=== PATIENT | female | born 1975 | race African-American/Black ===

== ENCOUNTER 2021-11-15 10:57 | Emergency (ER) | payer BC, SELFPAY ==
--- NOTE | ~2021-11-15 | XR_ITS ---
EXAMINATION: XR CHEST CLINICAL INFORMATION: Left upper quadrant abdominal pain COMPARISON: None TECHNIQUE: 2 views of the chest were obtained. FINDINGS: No significant abnormality is noted involving the heart, lungs, mediastinum, bony thorax or soft tissues. XR/XR chest 2V IMPRESSION: Unremarkable chest examination.
--- NOTE | ~2021-11-15 | CT_ITS ---
EXAMINATION: CT HEAD WITHOUT CONTRAST CT ABDOMEN AND PELVIS WITH CONTRAST CLINICAL INFORMATION: Headaches, right-sided for a few days, with blurry vision. Abdominal pain. COMPARISON: None. TECHNIQUE: Multidetector CT imaging of the head was performed in two separate acquisitions without the use of intravenous contrast. Multiplanar reformats are reviewed. Multidetector volumetric CT imaging of the abdomen and pelvis was obtained after the administration of 85 mL of intravenous Omnipaque 350 without immediate adverse reactions. Multiplanar reformats and maximal intensity projection images are reviewed. This CT examination was performed using dose optimization techniques as appropriate, variously including the following: *Automated exposure control *Adjustment of mA and/or kV according to patient size (this includes techniques or standardized protocols for targeted exams where dose is matched to indication/reason for exam; i.e. extremities or head) *Use of iterative reconstruction technique DLP: 1502 mGy-cm. FINDINGS: HEAD There is no evidence of acute intracranial hemorrhage or territorial infarction. No abnormal mass effect or midline shift is seen. Cannon to white matter differentiation is well preserved. No extra-axial fluid collections are identified. The ventricles are normal in size. Mild patchy subcortical and periventricular white matter low-attenuation changes. The osseous structures and soft tissues are normal. Mucosal thickening within the right maxillary sinus. Remainder of the paranasal sinuses are clear. Mastoid air cells are underpneumatized on a developmental basis. ABDOMEN/PELVIS IMAGED THORAX: Lungs are clear. HEPATOBILIARY: Liver normal in size, contour and morphology. No suspicious lesions. No intra or extrahepatic biliary dilation. Gallbladder unremarkable. PANCREAS: Unremarkable. SPLEEN: Unremarkable. ADRENAL GLANDS: Unremarkable. KIDNEYS, URETERS AND BLADDER: Kidneys normal in size, axis and morphology demonstrating symmetric enhancement. No hydronephrosis or urinary calculi. Ureters normal in course and caliber. Bladder grossly unremarkable.. GASTROINTESTINAL TRACT: No bowel related abnormalities. PELVIC VISCERA: Uterus and adnexa unremarkable. LYMPH NODES: No lymphadenopathy. PERITONEUM/BODY WALL: Diastasis of the rectus abdominis.c no ascites. VASCULAR STRUCTURES: Unremarkable. OSSEOUS STRUCTURES: No acute or suspicious osseous abnormalities. CT/CT abdomen pelvis w con IMPRESSION: * No acute intracranial pathology. * Mild patchy subcortical and periventricular white matter low-attenuation changes are nonspecific but greater than expected for patient age if these are assumed to be on the basis of chronic white matter small vessel ischemic disease. Inter eduarda, chronic migraines, demyelinating diseases and vasculitides should also be considered. * No etiology for the patient's abdominal pain is identified. * No fractures.
[2021-11-15 11:02] VITALS: BP 127/70; PULSE 81; RESP 19; TEMP 36.1; O2SAT 99; BMI 17.6
--- NOTE | 2021-11-15 11:48 | ED.ABDPAIN ---
HPI - Abdominal Pain General Chief Complaint: Abdominal Pain Stated Complaint: stomach pain Time Seen by Provider: 11/15/21 11:32 Source: patient and family Mode of arrival: ambulatory Limitations: language barrier (Ukrainian-speaking) History of Present Illness HPI narrative: 46-year-old female who denies any significant past medical history surgical history presenting to the ED with complaints of left upper quadrant/left flank/left lower quadrant abdominal pain that radiates to her back over the past 3 weeks that is currently worsening. Also reports right upper quadrant abdominal pain that radiates to her right flank/right back over the past few days. Also reports bright red blood stools last week although has resolved. Reports a separate complaint of intermittent pain to her right arm and right hip. Also reports right-sided headaches with blurry vision for the past few days as well. Denies any dizziness, neck pain/stiffness, sore throat, cough, chest pain, shortness of breath, dyspnea on exertion, orthopnea, palpitations, nausea/vomiting/diarrhea or constipation, black stools, dysuria, hematuria, abnormal vaginal discharge, rashes, recent travel or sick contacts, lower extremity edema or calf tenderness or any other symptoms complaints or concerns at this time. MD elicited complaint: abdominal pain and flank pain Pertinent past history: none Onset (ago): week(s) (3) Pain Consistency: constant Location: LUQ, LLQ and L flank Severity: moderate Radiation: back Exacerbating factors: nothing Relieving factors: nothing Associated symptoms: other (See above) Related Data Previous Rx's Medication Instructions Recorded cyclobenzaprine 10 mg tablet 10 mg PO Q8H PRN #14 tab 11/15/21 naproxen 500 mg tablet 500 mg PO BID PRN #10 tab 11/15/21 Allergies Allergy/AdvReac Type Severity Reaction Status Date / Time No Known Allergies Allergy Verified 11/15/21 11:45 Review of Systems Review of Systems Constitutional : No Weight loss, No Fever, No Chills, No Night Sweats, No Fatigue, No Malaise ENT/Mouth : No Hearing loss, No Ear Pain, No Nasal Congestion, No Sinus Pain, No Hoarseness, No sore throat, No Rhinorrhea, No Swallowing Difficulty Eyes: No Eye Pain, No Swelling, No Redness, No Foreign Body, No Discharge, No Vision Changes Cardiovascular : No Chest Pain, No SOB, No Dyspnea on Exertion, No Orthopnea, No Edema, No Palpitations Respiratory : No Cough, No Sputum, No Wheezing, No Smoke Exposure, No Dyspnea Gastrointestinal : No Nausea, No Vomiting, No Diarrhea, No Constipation, + abdominal Pain, No Hematochezia, No Melena Genitourinary : no irregular bleeding, No Dysuria, No Urinary Frequency, No Hematuria, No Urinary Incontinence, No Urgency, No Flank Pain, No Urinary Flow Changes, No Hesitancy Musculoskeletal : + right arm and right hip joint pain, No Myalgias, No Joint Swelling Skin : No Skin Lesions, No rash Neuro : No Weakness, No Numbness, No Paresthesias, No Loss of Consciousness, No Dizziness, + Headache, + blurry vision Psych : No Anxiety/Panic, No Depression, No SI/HI/AH/VH, No Social Issues, Heme/Lymph: No Bruising, No Bleeding,No Lymphadenopathy Endocrine : No Polyuria, No Polydipsia, No Temperature Intolerance Yes all other systems are reviewed and are negative Physical Exam Vital Signs: Vital Signs: Last Vital Signs Temp 98.2 F 11/15/21 11:59 Pulse 70 11/15/21 11:59 Resp 16 11/15/21 11:59 BP 117/54 L 11/15/21 11:59 Pulse Ox 100 11/15/21 11:59 BMI result Body Mass Index 17.6 vital signs have been reviewed as normal and appeared to be correct. Blood pressure normal. Heart rate normal. Respiration rate normal. Temperature normal. Oxygen saturation normal. Appearance: Alert. Oriented X3. No acute distress. Head: Normal external exam. Normocephalic. Atraumatic. Able to rotate head bilaterally. Eyes: PERRLA. EOMI. No nystagmus noted. Conjunctiva and sclera normal. Eyelids normal. Corneal reflex normal. ENT: EAC normal. TM's Normal. Hearing normal. Pharynx normal. Uvula midline. tongue midline. Moist mucous membranes. No trismus noted. No drooling noted. No muffled voice noted. No nystagmus noted. Neck: Normal inspection. Neck supple. FROM. No adenopathy. Trachea midline. Thyroid Normal. No meningeal signs. No neck mass noted. CVS: Normal heart rate and rhythm. Heart sound normal. No murmurs noted. Pulses normal throughout. Respiratory: No respiratory distress. Painless inspiration. Breath sounds normal. No wheezes/rales/rhonchi noted. Chest nontender. No accessory muscle usage noted or decreased air movement noted. Abdomen: Soft and moderate tenderness to palpation to left upper quadrant/left flank/left lower quadrant and mild tenderness to the right upper quadrant/right flank. Guarding. Nondistended. No guarding. No rigidity. Bowel sounds normal in all 4 quadrants. No distention noted. No organomegaly noted. No visible injury noted. No rebound tenderness. Negative Rovsing sign. Negative obturator's sign. Negative psoas sign. Negative Mcgowan sign. Back: No CVA tenderness. Full range of motion noted. Skin: Skin warm and dry. Normal skin color. Normal skin turgor. No rashes/lesions/lacerations noted. Extremities: No lower extremity edema. No calf tenderness is noted. Extremities exhibit normal range of motion. Extremities nontender. Able to shrug shoulders bilaterally and keep up against resistance. Neuro: Oriented X 3. No motor deficit. No sensory deficit. Reflexes normal. Moving all extremities. No focal motor deficits. Cranial nerves II-XI intact bilaterally. Facial strength normal. Normal cognition. Speech normal. Gait normal. Strength 5/5 throughout. No pronator drift. No tremor noted. No fasciculations noted. No rigidity noted. Muscle tone normal throughout. No asterixis noted. [id number] test normal. Heel to navarro test normal. Tandem gait normal. Does not sway with eyes open. Romberg test negative. Rapid alternating movement upper extremity normal. Rapid alternating movement lower extremity normal. Hand drop from overhead Misses face. NIHSS score 0. Course Course Course Narrative: 15:20pm - labs reviewed and all within normal limits. Negative troponin. Negative hCG. CT scan of abdomen and pelvis with IV contrast negative for any acute processes. Chest x-ray within normal limits no acute processes are noted. CT scan abdomen pelvis with IV contrast revealed Mild patchy ubcortical and periventricular white matter low-attenuation changes are nonspecific but greater than expected for patient age if these are assumed to be on the basis of chronic white matter small vessel ischemic disease. Inter eduarda, chronic migraines, demyelinating diseases and vasculitides should also be considered. - therefore I printed out the results and handed to the patient her family member and explained to her that she needs to follow up with Neurology for further evaluation treatment and possibly an outpatient MRI and to return if any new or worsening symptoms of find a new primary care provider. Patient and family at bedside understand and agree to this plan. MDM - Abdominal Pain MDM Narrative Medical decision making narrative: 11:45am - 46-year-old female who denies any significant past medical history surgical history presenting to the ED with complaints of left upper quadrant/left flank/left lower quadrant abdominal pain that radiates to her back over the past 3 weeks that is currently worsening. Also reports right upper quadrant abdominal pain that radiates to her right flank/right back over the past few days. Also reports bright red blood stools last week although has resolved. Reports a separate complaint of intermittent pain to her right arm and right hip. Also reports right-sided headaches with blurry vision for the past few days as well. On exam patient is alert and oriented x3. Not in any acute distress. No focal neuro deficit noted. NIHSS score 0. Normal steady gait. Patient has non disabling symptoms and her symptoms started at least days to 3 weeks ago therefore not a candidate for tPA. Plan: Will obtain labs, EKG, chest x-ray, CT scan of brain, CT scan abdomen pelvis with IV contrast, UA and re-evaluate. Medical Records Attestation: I reviewed the patient's medical records. Lab Data Attestation: I reviewed the patient's lab results. Result diagrams: 11/15/21 12:07 11/15/21 12:07 Labs: Lab Results 11/15/21 11/15/21 11/15/21 Range/Units 12:07 12:07 12:07 WBC 8.5 (4.8-10.8) X10*3/uL RBC 4.43 (4.20-5.50) X10*6/uL Hgb 12.8 (12.0-16.0) g/dl Hct 39.6 (37.0-47.0) % MCV 89.4 (80.0-98.0) fL MCH 28.9 (27.0-33.0) pg MCHC 32.3 (31.0-35.0) g/dl RDW 14.0 (11.0-16.0) % Plt Count 266 (160-400) X10*3/uL MPV 10.5 (9.4-12.3) fL Immature Gran % (Auto) 0.2 (0.0-0.4) % Neut % (Auto) 50.8 (45-73) % Lymph % (Auto) 37.1 (20-40) % [place] % (Auto) 9.0 (2-11) % Eos % (Auto) 2.2 (0-4) % Baso % (Auto) 0.7 (0-2) % Lymph # (Auto) 3.2 (1.2-4.9) X10*3/uL [place] # (Auto) 0.8 (0.1-1.2) X10*3/uL Eos # (Auto) 0.2 (0.0-0.4) X10*3/uL Baso # (Auto) 0.1 (0.0-0.2) X10*3/uL Abs Immat Gran (auto) 0.02 (0.00-0.03) X10*3/uL Absolute Neuts (auto) 4.3 (2.0-8.3) x10*3/uL Absolute Nucleated RBC 0.000 (0.0-0.012) X10*3/uL Nucleated RBC % (auto) 0.0 (0.0-0.2) /100WBC Sodium 137 (135-145) mmol/L Potassium 4.0 (3.3-5.1) mmol/L Chloride 104 (96-108) mmol/L Carbon Dioxide 26 (22-29) mmol/L Anion Gap 11 L (12-20) BUN 13 (9-16) mg/dL Creatinine 0.71 (0.5-1.4) mg/dL Estim Creat Clear Calc 69.4 Estimated GFR > 60 Random Glucose 83 (60-115) mg/dL Calcium 9.1 (8.4-10.2) mg/dL Magnesium 1.8 (1.6-2.6) mg/dL Total Bilirubin 0.3 (0.0-1.0) mg/dL AST 24 (5-31) U/L ALT 27 (0-31) U/L Alkaline Phosphatase 67 (39-117) U/L Troponin I High Sens < 3.5 (<3.5-17.0) ng/L Total Protein 7.4 (6.5-8.0) g/dL Albumin 4.1 (3.5-5.0) g/dL Lipase 26 (8-78) U/L Beta HCG, Quant < 2 mIU/mL Urine Color Urine Appearance Urine pH (5.0-8.0) Ur Specific [place] (1.005-1.025) Urine Protein (NEG-TRACE) MG/DL Urine Glucose (UA) (NEG) MG/DL Urine Ketones (NEG) MG/DL Urine Blood (NEG) Urine Nitrite (NEG) Ur Leukocyte Esterase (NEG) 11/15/21 Range/Units 14:56 WBC (4.8-10.8) X10*3/uL RBC (4.20-5.50) X10*6/uL Hgb (12.0-16.0) g/dl Hct (37.0-47.0) % MCV (80.0-98.0) fL MCH (27.0-33.0) pg MCHC (31.0-35.0) g/dl RDW (11.0-16.0) % Plt Count (160-400) X10*3/uL MPV (9.4-12.3) fL Immature Gran % (Auto) (0.0-0.4) % Neut % (Auto) (45-73) % Lymph % (Auto) (20-40) % [place] % (Auto) (2-11) % Eos % (Auto) (0-4) % Baso % (Auto) (0-2) % Lymph # (Auto) (1.2-4.9) X10*3/uL [place] # (Auto) (0.1-1.2) X10*3/uL Eos # (Auto) (0.0-0.4) X10*3/uL Baso # (Auto) (0.0-0.2) X10*3/uL Abs Immat Gran (auto) (0.00-0.03) X10*3/uL Absolute Neuts (auto) (2.0-8.3) x10*3/uL Absolute Nucleated RBC (0.0-0.012) X10*3/uL Nucleated RBC % (auto) (0.0-0.2) /100WBC Sodium (135-145) mmol/L Potassium (3.3-5.1) mmol/L Chloride (96-108) mmol/L Carbon Dioxide (22-29) mmol/L Anion Gap (12-20) BUN (9-16) mg/dL Creatinine (0.5-1.4) mg/dL Estim Creat Clear Calc Estimated GFR Random Glucose (60-115) mg/dL Calcium (8.4-10.2) mg/dL Magnesium (1.6-2.6) mg/dL Total Bilirubin (0.0-1.0) mg/dL AST (5-31) U/L ALT (0-31) U/L Alkaline Phosphatase (39-117) U/L Troponin I High Sens (<3.5-17.0) ng/L Total Protein (6.5-8.0) g/dL Albumin (3.5-5.0) g/dL Lipase (8-78) U/L Beta HCG, Quant mIU/mL Urine Color YELLOW Urine Appearance CLEAR Urine pH 7.0 (5.0-8.0) Ur Specific [place] 1.010 (1.005-1.025) Urine Protein NEG (NEG-TRACE) MG/DL Urine Glucose (UA) 100 H (NEG) MG/DL Urine Ketones NEG (NEG) MG/DL Urine Blood NEG (NEG) Urine Nitrite NEG (NEG) Ur Leukocyte Esterase NEG (NEG) Imaging Data Chest x-ray: Attestation: I personally reviewed and interpreted this imaging study as follows: Radiologist's impression: FINDINGS: No significant abnormality is noted involving the heart, lungs, mediastinum, bony thorax or soft tissues. XR/XR chest 2V IMPRESSION: Unremarkable chest examination. CT scan of brain without contrast and CT scan abdomen pelvis with IV contrast: Attestation: I personally reviewed and interpreted this imaging study as follows: Radiologist's impression: FINDINGS: HEAD There is no evidence of acute intracranial hemorrhage or territorial infarction. No abnormal mass effect or midline shift is seen. Cannon to white matter differentiation is well preserved. No extra-axial fluid collections are identified. The ventricles are normal in size. Mild patchy subcortical and periventricular white matter low-attenuation changes. The osseous structures and soft tissues are normal. Mucosal thickening within the right maxillary sinus. Remainder of the paranasal sinuses are clear. Mastoid air cells are underpneumatized on a developmental basis. ? ABDOMEN/PELVIS IMAGED THORAX: Lungs are clear. HEPATOBILIARY: Liver normal in size, contour and morphology. No suspicious lesions. No intra or extrahepatic biliary dilation. Gallbladder unremarkable. PANCREAS: Unremarkable. SPLEEN: Unremarkable. ADRENAL GLANDS: Unremarkable. KIDNEYS, URETERS AND BLADDER: Kidneys normal in size, axis and morphology demonstrating symmetric enhancement. No hydronephrosis or urinary calculi. Ureters normal in course and caliber. Bladder grossly unremarkable.. GASTROINTESTINAL TRACT: No bowel related abnormalities.? PELVIC VISCERA: Uterus and adnexa unremarkable. LYMPH NODES: No lymphadenopathy. PERITONEUM/BODY WALL: Diastasis of the rectus abdominis.c no ascites. VASCULAR STRUCTURES: Unremarkable. OSSEOUS STRUCTURES: No acute or suspicious osseous abnormalities. ? CT/CT head/brain wo con IMPRESSION: *? No acute intracranial pathology. *? Mild patchy subcortical and periventricular white matter low-attenuation changes are nonspecific but greater than expected for patient age if these are assumed to be on the basis of chronic white matter small vessel ischemic disease. Inter eduarda, chronic migraines, demyelinating diseases and vasculitides should also be considered. *? No etiology for the patient's abdominal pain is identified. *? No fractures. Critical Care Time Critical Care Time Critical Care Time: Yes Total Critical Care Time: 60 Attestation: I personally attest to this time spent taking care of the patient Discharge Plan Discharge Clinical Impression: Abdominal pain, Arm pain, right, Abnormal brain CT, Generalized headaches Patient Disposition: Home, Self-Care Instructions: Abdominal Pain (ED), Arm Pain (ED), Acute Headache (ED) Prescriptions: New naproxen 500 mg tablet 500 mg PO BID PRN (Reason: pain) Qty: 10 RF: 0 cyclobenzaprine 10 mg tablet 10 mg PO Q8H PRN (Reason: Muscle spasm) Qty: 14 RF: 0 Referrals: Zahra Vargas MD [Physician] - 2 days (Llame para hacer samina radha dentro de las pr?ximas semanas para samina posible resonancia magn?arlyn ambulatoria para un tratamiento de evaluaci?n adicional Call to make an appointment within the next few weeks for possible outpatient MRI for further evaluation treatment) Print Language: Ukrainian [facility] Past Medical History Attestation statement: The following information was validated with the patient. Social History Social History Patient Tobacco Use Status: Never used Tobacco Smoked in Last 30 Days: No Use of substances other than those prescribed or required for medical reasons: No Advance Directives: No Advance Directives Information Provided: Yes Patient : No
[2021-11-15 11:59] VITALS: BP 117/54; PULSE 70; RESP 16; TEMP 36.8; O2SAT 100
[2021-11-15] MEDS: 0.9 % Sodium Chloride 1,000 ML 999 ML IVCONT (12:07)
[2021-11-15 12:10] LABS: MANUAL DIFF FLAG NO
[2021-11-15 12:39] LABS: Basophils Absolute Auto 0.1 X10*3/uL (0.0-0.2); Basophils Percent Auto 0.7 % (0-2); Eosinophils Absolute Auto 0.2 X10*3/uL (0.0-0.4); Eosinophils Percent Auto 2.2 % (0-4); Hematocrit 39.6 % (37.0-47.0); Hemoglobin 12.8 g/dl (12.0-16.0); Imm Gran Abs Auto 0.02 X10*3/uL (0.00-0.03); Imm Gran Pct Auto 0.2 % (0.0-0.4); Lymphocytes Absolute Auto 3.2 X10*3/uL (1.2-4.9); Lymphocytes Percent Auto 37.1 % (20-40); Mean Corpuscular HGB Conc 32.3 g/dl (31.0-35.0); Mean Corpuscular Hemoglobin 28.9 pg (27.0-33.0); Mean Corpuscular Volume 89.4 fL (80.0-98.0); Mean Platelet Volume 10.5 fL (9.4-12.3); Monocytes Absolute Auto 0.8 X10*3/uL (0.1-1.2); Neutrophils Absolute Auto 4.3 x10*3/uL (2.0-8.3); Neutrophils Percent Auto 50.8 % (45-73); Platelet Count 266 X10*3/uL (160-400); Red Blood Count 4.43 X10*6/uL (4.20-5.50); White Blood Count 8.5 X10*3/uL (4.8-10.8)
[2021-11-15 12:42] LABS: Alanine Aminotransferase 27 U/L (0-31); Albumin Level 4.1 g/dL (3.5-5.0); Alkaline Phosphatase 67 U/L (39-117); Anion Gap 11 (12-20); Aspartate Amino Transferase 24 U/L (5-31); Bilirubin Total 0.3 mg/dL (0.0-1.0); Blood Urea Nitrogen 13 mg/dL (9-16); Calcium 9.1 mg/dL (8.4-10.2); Carbon Dioxide 26 mmol/L (22-29); Chloride 104 mmol/L (96-108); Creatinine Clr Calc Pharmacy 69.4; Estimated Glomerular Filt Rate > 60; Glucose Random 83 mg/dL (60-115); Lipase 26 U/L (8-78); Magnesium 1.8 mg/dL (1.6-2.6); Sodium 137 mmol/L (135-145); Total Protein 7.4 g/dL (6.5-8.0)
[2021-11-15 12:44] LABS: Troponin-I High Sensitivity < 3.5 ng/L (<3.5-17.0)
[2021-11-15 13:00] LABS: HCG Quantitative < 2 mIU/mL
[2021-11-15] MEDS: iohexoL 350 MG/ML 100 ML INFUS..BTL IV (14:20)
[2021-11-15 15:24] LABS: Appearance Urine CLEAR; Color Urine YELLOW; Glucose Urine UA 100 MG/DL (NEG); Leukocyte Esterase Urine NEG (NEG); Nitrite Urine NEG (NEG); Urine Blood NEG (NEG); Urine Ketones NEG (NEG); Urine Protein NEG (NEG-TRACE)
== END 2021-11-15 15:55 | disposition home or self-care (01) ==
PROVIDERS: Physician Assistant Medical; Emergency Provider Emergency Medicine
DX: R10.9 Unspecified abdominal pain (principal); M79.601 Pain in right arm; R90.89 Other abnormal findings on diagnostic imaging of central nervous system; G44.89 Other headache syndrome
CPT/HCPCS: 36415; 70450; 71046; 74177; 80053; 81003; 83690; 83735; 84484; 84702; 85025; 96360; 99284; 99291; Q9967

== ENCOUNTER 2025-10-18 14:15 | Emergency (ER) | payer BC, SELFPAY ==
--- NOTE | ~2025-10-18 | XR_ITS ---
EXAMINATION: XR CHEST 2 VIEWS HISTORY: chest pain COMPARISON: Comparison is made with the prior examination dated 11/15/2021. FINDINGS: PA and lateral views of the chest are submitted. The lungs are expanded and clear. There is no pleural effusion, pneumothorax, or pulmonary vascular congestion. The heart is normal in size. The bones are intact. XR/XR chest 2V IMPRESSION: No acute cardiopulmonary abnormality. Electronically signed by: Anurag Denney MD 10/18/2025 03:21 PM ROB
--- NOTE | ~2025-10-18 | US_ITS ---
CLINICAL HISTORY: left flank pain US renal Comparison: None Provided Findings: Right kidney 10.8 cm length. No significant focal abnormality. Left kidney 11.7 cm length. No significant focal abnormality. No bilateral hydronephrosis. Normal bilateral renal echogenicity. Impression: No significant abnormalities. This document has been electronically signed by: Hussein Moon MD on 10/18/2025 19:48:42
--- NOTE | 2025-10-18 14:17 | ECG_ITS ---
Test Reason : cp Blood Pressure : */* mmHG Vent. Rate : 59 BPM Atrial Rate : 59 BPM P-R Int : 178 ms QRS Dur : 72 ms QT Int : 400 ms P-R-T Axes : 53 59 54 degrees QTcB Int : 396 ms Sinus bradycardia Otherwise normal ECG No previous ECGs available Referred By: Henry Bello Electronically Signed By: JERI DENG
[2025-10-18 14:34] VITALS: BP 124/79; PULSE 58; RESP 16; TEMP 36.7; O2SAT 98; BMI 48.0
--- NOTE | 2025-10-18 14:41 | ED_ITS ---
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 Kapoor HPI narrative: 50-year-old female came in for evaluation of left-sided chest pain that is started last week has been worsening for the past 2 days pain is intermittent comes and goes no clear aggravating factor, no clear relieving factor. no cough, no recent travel, no lower extremity swelling or tenderness, no history of DVT or PE. No history of chest trauma or injury. Patient also is complaining of left flank pain as patient stated is been going on for 17 years since she moved to [facility], pain is on the left flank back pain that radiates to the front of the abdomen, patient was told that she has a kidney problems in the past. Patient is also complaining of frequency urination, dysuria, no hematuria. Related Data Previous Rx's ?Medication ?Instructions ?Recorded cyclobenzaprine 10 mg tablet 10 mg PO Q8H PRN Muscle s pasm #14 11/15/21 tabs naproxen 500 mg tablet 500 mg PO BID PRN pain #10 t abs 11/15/21 cefuroxime axetil 500 mg tablet 500 mg PO BID #14 tabs 10/18/25 Allergies Allergy/AdvReac Type Severity Reaction Status Date / Time No Known Allergies Allergy Verified 10/18/25 14:40 Review of Systems 2 Review of Systems: All other systems are reviewed and are negative Constitutional: Reports as per HPI and Reports no additional constitutional complaints Eyes: Reports as per HPI and Reports no additional eye complaints Reports system reviewed and no additional complaints, except as documented Cardiovascular: Reports as per HPI and Reports no additional cardiovascular complaints Respiratory: Reports as per HPI and Reports no additional respiratory complaints Gastrointestinal: Reports as per HPI and Reports no additional gastrointestinal complaints Genitourinary: Reports no additional female genitourinary complaints Musculoskeletal: Reports no additional musculoskeletal complaints Skin/Breast: Reports system reviewed and no additional complaints, except as docu Psychiatric: Reports no additional psychiatric complaints Endocrine: Reports no additional endocrine complaints Hematologic/Lymphatic: Reports no additional hematologic/lymphatic complaints Allergic/Immunologic: Reports no additional allergic/immunologic complaints Reports system reviewed and no additional complaints, except as documented and Reports Abnormal speech present [facility] Social History Social History Patient Tobacco Use Status: Never used Tobacco Advance Directives: No Advance Directives Information Provided: No Do you have a plan to hurt others: No Plan Physical Exam ED Vital Signs: Vital Signs - 24 hr 10/18/25 14:34 10/18/25 18:20 10/18/25 19:04 Temperature 98.0 F 98.4 F 98.4 F Pulse Rate 58 60 65 Respiratory Rate 16 18 Blood Pressure 124/79 128/51 L 114/75 Pulse Oximetry 98 99 100 Oxygen Delivery Method Room Air Room Air Room Air BMI result Body Mass Index 48.0 Vital signs have been reviewed and appear to be correct. Blood pressure elevated. Heart rate normal. Respiratory rate normal. Temperature normal. Oxygen saturation normal. Appearance: Alert. Oriented X3. No acute distress. Head: Normal external exam. Normocephalic. Atraumatic. No Jimenez signs noted. No raccoon eyes noted Eyes: PERRLA. EOMI. Conjunctiva and sclera normal. Eyelids normal. ENT: TM's Normal. Pharynx normal. Uvula midline. Moist mucous membranes. No trismus noted. No drooling noted. No muffled voice noted. Neck: Normal inspection. Neck supple. FROM. No adenopathy. Thyroid Normal. No meningeal signs. No neck mass noted. CVS: Normal heart rate and rhythm. Heart sound normal. No murmurs noted. Pulses normal throughout. Respiratory: No respiratory distress. Painless inspiration. Breath sounds normal. No wheezes/rales/rhonchi noted. Chest nontender. No accessory muscle usage noted or decreased air movement noted. Abdomen: Soft and nontender. Bowel sounds normal in all 4 quadrants. No distention noted. No organomegaly noted. No visible injury noted. Back: No CVA tenderness. Full range of motion noted. Skin: Skin warm and dry. Normal skin color. Normal skin turgor. No rashes/lesions/lacerations noted. Extremities: No lower extremity edema. Extremities exhibit normal range of motion. Extremities nontender. Neuro: Oriented X 3. Cranial nerve exam: II-XII are grossly intact No motor deficit. No sensory deficit. Reflexes normal. Course Course Course Narrative: RME: 50-year-old female presents to ED for left-sided rib chest pain that is occurring for a long time but now worsening for the past week. Patient denies any recent trauma nausea vomiting. Labs EKG ordered Reevaluation(s) Reevaluation #1: simple non complicated UTI, renal ultrasound is unremarkable, will start the patient on cefuroxime and encouraged to drink plenty of fluids. Time: 20:26 Medications Administered Discontinued Medications Generic Name Dose Route Start Last Admin Trade Name Freq PRN Reason Stop Dose Admin Cefuroxime Axetil 500 mg 10/18/25 20:20 10/18/25 20:33 Cefuroxime Axetil 500 Mg Tablet PO 10/18/25 20:21 500 mg ONCE ONE Administration Medical Decision Making Differential Diagnosis Differential Diagnoses: The differential diagnosis associated with the presentation includes ( UTI, pyelonephritis, obstructive uropathy, myofascial flank pain, severe anemia, electrolyte derangement.) Admission/Observation Consideration of admission/observation: Escalation of care including admission/observation considered Lab Data MDM Lab Attestation statement: I reviewed the patient's lab results. 10/18/25 14:55 10/18/25 14:55 Labs: Lab Results 10/18/25 10/18/25 Range/Units 14:55 18:28 WBC 8.2 (4.8-10.8) X10*3/uL RBC 4.59 (4.20-5.50) X10*6/uL Hgb 13.1 (12.0-16.0) g/dl Hct 40.6 (37.0-47.0) % MCV 88.5 (80.0-98.0) fL MCH 28.5 (27.0-33.0) pg MCHC 32.3 (31.0-35.0) g/dl RDW 14.6 (11.0-16.0) % Plt Count 297 (160-400) X10*3/uL MPV 10.2 (9.4-12.3) fL Immature Gran % (Auto) 0.2 (0.0-0.4) % Neut % (Auto) 46.6 (45-73) % Lymph % (Auto) 39.3 (20-40) % [place] % (Auto) 10.7 (2-11) % Eos % (Auto) 2.6 (0-4) % Baso % (Auto) 0.6 (0-2) % Lymph # (Auto) 3.2 (1.2-4.9) X10*3/uL [place] # (Auto) 0.9 (0.1-1.2) X10*3/uL Eos # (Auto) 0.2 (0.0-0.4) X10*3/uL Baso # (Auto) 0.1 (0.0-0.2) X10*3/uL Abs Immat Gran (auto) 0.02 (0.00-0.03) X10*3/uL Absolute Neuts (auto) 3.8 (2.0-8.3) x10*3/uL Absolute Nucleated RBC 0.000 (0.0-0.012) X10*3/uL Nucleated RBC % (auto) 0.0 (0.0-0.2) /100WBC PT 12.2 (11.2-13.5) SEC INR 1.0 (0.9-1.1) APTT 29.7 (26.7-34.1) SEC Sodium 142 (135-145) mmol/L Potassium 4.2 (3.3-5.1) mmol/L Chloride 107 (96-108) mmol/L Carbon Dioxide 28 (22-29) mmol/L Anion Gap 11 L (12-20) BUN 12 (9-16) mg/dL Creatinine 0.65 (0.5-1.4) mg/dL Estim Creat Clear Calc 110.3 Estimated GFR > 60 Random Glucose 70 (60-115) mg/dL Calcium 9.3 (8.4-10.2) mg/dL Total Bilirubin 0.2 (0.0-1.0) mg/dL AST 28 (5-31) U/L ALT 30 (0-31) U/L Alkaline Phosphatase 68 (39-117) U/L Troponin I High Sens < 2.7 (<3.5-17.0) ng/L NT-Pro-B Natriuret Pep 113.5 (<300) pg/mL Total Protein 7.5 (6.5-8.0) g/dL Albumin 4.4 (3.5-5.0) g/dL Urine Color Yellow Urine Appearance Cloudy Urine pH 5.5 (5.0-9.0) Ur Specific [place] 1.015 (1.005-1.025) Urine Protein 30 (1+) H (Neg-Trace) mg/dL Urine Glucose (UA) Negative (Negative) mg/dL Urine Ketones Negative (Negative) mg/dL Urine Blood Negative (Negative) Urine Nitrite Negative (Negative) Ur Leukocyte Esterase Moderate (2+) H (Negative) Urine RBC 0-2 (0-2) /HPF Urine WBC 21-50 H (0-5) /HPF Ur Squamous Epith Cells >20 (0-2) /HPF Urine Bacteria 2+ (None Seen) Hyaline Casts 3-5 (0-2) /LPF Influenza Type A (PCR) NEGATIVE (Negative) Influenza Type B (PCR) NEGATIVE (Negative) RSV RNA Qual (PCR) NEGATIVE (Negative) SARS-CoV-2 RNA (RT-PCR) NEGATIVE (Negative) Independent Interpretation I performed an independent interpretation of an: Ultrasound ( Renal: Normal bilateral renal ultrasound.) Radiology Impression Discussion of test interpretation with radiology: I have reviewed the radiologist's reading. Discharge Plan Discharge Clinical Impression: Urinary tract infection Patient Disposition: Home, Self-Care Instructions: Urinary Tract Infection in Women (DC) Additional Instructions: drink plenty of fluids. Prescriptions: New cefuroxime axetil 500 mg tablet 500 mg PO BID Qty: 14 0RF No Action naproxen 500 mg tablet 500 mg PO BID PRN (Reason: pain) Qty: 10 0RF cyclobenzaprine 10 mg tablet 10 mg PO Q8H PRN (Reason: Muscle spasm) Qty: 14 0RF Referrals: [place] [Primary Care Provider, Primary Care] Interventions: ED Discharge Assessment Last Done: 10/18/25 20:34 Discharge Date/Time: 10/18/25 20:34 Print Language: Montserratian
[2025-10-18 15:01] LABS: MANUAL DIFF FLAG NO
[2025-10-18 15:04] LABS: Hematocrit 40.6 % (37.0-47.0); Hemoglobin 13.1 g/dl (12.0-16.0); Imm Gran Abs Auto 0.02 X10*3/uL (0.00-0.03); Imm Gran Pct Auto 0.2 % (0.0-0.4); Lymphocytes Absolute Auto 3.2 X10*3/uL (1.2-4.9); Mean Corpuscular HGB Conc 32.3 g/dl (31.0-35.0); Mean Corpuscular Hemoglobin 28.5 pg (27.0-33.0); Mean Corpuscular Volume 88.5 fL (80.0-98.0); NRBC Abs Auto 0.000 X10*3/uL (0.0-0.012); NRBC Pct Auto 0.0 /100WBC (0.0-0.2); Platelet Count 297 X10*3/uL (160-400); Red Blood Count 4.59 X10*6/uL (4.20-5.50); White Blood Count 8.2 X10*3/uL (4.8-10.8)
[2025-10-18 15:09] LABS: INTERNATIONAL NORM RATIO 1.0 (0.9-1.1); Prothrombin Time 12.2 SEC (11.2-13.5)
[2025-10-18 15:11] LABS: Partial Thromboplastin Time 29.7 SEC (26.7-34.1)
[2025-10-18 15:25] LABS: Alanine Aminotransferase 30 U/L (0-31); Albumin Level 4.4 g/dL (3.5-5.0); Alkaline Phosphatase 68 U/L (39-117); Anion Gap 11 (12-20); Aspartate Amino Transferase 28 U/L (5-31); Blood Urea Nitrogen 12 mg/dL (9-16); Calcium 9.3 mg/dL (8.4-10.2); Carbon Dioxide 28 mmol/L (22-29); Chloride 107 mmol/L (96-108); Creatinine Clr Calc Pharmacy 110.3; Estimated Glomerular Filt Rate > 60; Potassium 4.2 mmol/L (3.3-5.1); Sodium 142 mmol/L (135-145); Total Protein 7.5 g/dL (6.5-8.0)
[2025-10-18 15:35] LABS: NT Pro B Type Natriuretic Pept 113.5 pg/mL (<300); Troponin-I High Sensitivity < 2.7 ng/L (<3.5-17.0)
[2025-10-18 15:41] LABS: Resp Syncy Virus RNA Qual PCR NEGATIVE (Negative); SARS COV2 PCR INHOUSE NEGATIVE (Negative)
[2025-10-18 18:20] VITALS: BP 128/51; PULSE 60; TEMP 36.9; O2SAT 99
[2025-10-18 18:54] LABS: Appearance Urine Cloudy; Glucose Urine UA Negative (Negative); PH 5.5 (5.0-9.0); Specific Gravity - Urine 1.015 (1.005-1.025); UMIC TRIGGER UACC YES
[2025-10-18 19:04] VITALS: BP 114/75; PULSE 65; RESP 18; TEMP 36.9; O2SAT 100
[2025-10-18 19:56] LABS: UACC Culture Trigger YES
[2025-10-18 20:34] VITALS: BP 114/75; PULSE 65; RESP 18; TEMP 36.9; O2SAT 100
--- OUTSIDE RECORDS SUMMARY | 2025-10-18 21:02 | XMS_ITS | Clinical Summary ---
Demographics Address [address] [facility] [address] [place] [address] Home Phone Mobile Phone Email Address Preferred Language es Marital Status Restorationism Affiliation Unknown Race Other Race Ethnic Group or Author Organization [facility] [address] [facility] [address] Address [address] [place] [address] Phone Care Team Providers Care Industrial Manufacturing Technician Name Role Phone Jeff Jimenez Primary Care Provider [phone] Allergies Active Allergy Reactions Criticality Noted Date Comments House Dust Low 07/20/2022 Medications tamsulosin (FLOMAX) 0.4 mg 24 hr capsule Take 1 capsule (0.4 mg total) by mouth 1 (one) time each day. Capsules should be taken 30 minutes following the same meal each day. Active simethicone (MYLICON) 80 mg chewable tablet Chew 1 tablet (80 mg total) every 6 (six) hours if needed for flatulence. Active psyllium (METAMUCIL) 0.52 gram capsule Take 1 capsule (520 mg total) by mouth 1 (one) time each day. Active polyethylene glycol (MIRALAX) 17 gram packet Take 17 g by mouth 1 (one) time each day. Active sulfamethoxazol e-trimethoprim (BACTRIM DS,SEPTRA DS) 800-160 mg per tablet Take 1 tablet by mouth 2 (two) times a day. Active traMADoL (ULTRAM) 50 mg tablet Take by mouth. Activ e ibuprofen (ADVIL,MOTRIN) 600 mg tablet Take by mouth. A ctive acetaminophen (TYLENOL 8 HOUR) 650 mg 8 hr tablet Take 1 tablet (650 mg total) by mouth every 8 (eight) hours if needed for mild pain. Do not crush, chew, or split. Active melatonin 3 mg tablet Take by mouth. Activ e polyethylene glycol (Golytely) 236-22.74-6.74 -5.86 gram solution Take 4L by mouth once for one dose. May substitue any PEG. Starting at 6PM the night before your procedure drink 1 8oz glasses at your own pace until you complete half of the gallon. Finish 2nd half of the gallon 5 hours before your procedure. 4000 mL 5 Active bisacodyL (DULCOLAX) 5 mg EC tablet Take 2 tablets by mouth right before beginning bowel prep. See instructions provided by the office 2 tablet 5 Active pantoprazole (PROTONIX) 20 mg EC tablet Take 1 tablet (20 mg total) by mouth 1 (one) time each day before breakfast. Do not crush, chew, or split. 30 tablet 3 5 Active Active Problems Problem Noted Date Diagnosed Date Rectal bleeding 02/01/2025 Surgical History Surgery Date Site/Laterality Comments TUBAL LIGATION Medical History Medical History Date Comments GERD (gastroesophageal reflux disease) Social History Tobacco Use Types Packs/Day Years Used Date Smoking Tobacco: Never Assessed Interpersonal Safety Answer Date Record ed Physical Abuse Unrecognized value 02/14/2025 Verbal Abuse Unrecognized value 02/14/2025 Comments No Sex and Gender Information Value Date Recorded Sex Assigned at Female 02/12/2025 12:35 PM EDT Legal Sex Female 9:48 AM EST Gender Identity Female 02/12/2025 12:35 PM EDT Sexual Orientation Straight 02/12/2025 12 :35 PM EDT Obstetrics History Para Term AB IAB SAB Ectopic Multiple Livin g Live Births 0 Last Filed Vital Signs Vital Sign Reading Time Taken Comments Blood Pressure 111/55 02/14/2025 9:31 AM EDT Pulse 68 02/14/2025 9:31 AM EDT Temperature 36.8 C (98.3 F) 02/14/2025 9:11 AM EDT Respiratory Rate 18 02/14/2025 9:31 AM EDT Oxygen Saturation 100% 02/14/2025 9:31 AM EDT Inhaled Oxygen Concentration - - Weight 107 kg (236 lb) 02/14/2025 8:38 AM EDT Height 160 cm (5' 3 ) 02/14/2025 8:38 AM EDT Body Mass Index 41.81 02/14/2025 8:38 AM EDT Plan of Treatment Health Maintenance Due Date Last Done Comments Cervical Cancer Screening: Pap Smear 1994 HIV Screening 10/27/2022 Hepatitis C Screening 10/27/2022 Social Influencers of Health Screening 10/27/2022 Pneumococcal Vaccine: 50+ Years (1 of 1 - PCV) 2023 RSV Immunization Adult Patients (1 - Risk 50-74 years 1-dose series) 2023 Depression Screening 11/29/2024 Hepatitis B Vaccines (2 of 2 - CpG 2-dose series) 02/21/2025 01/24/2025 Zoster Vaccines (2 of 2) 03/21/2025 01/24/2025 COVID-19 Vaccine (1 - 2024-2 6 season) 2025 Influenza Vaccine (#1) 2025 Breast Cancer Screening 02/13/2027 02/13/2025 DTaP,Tdap,and Td Vaccines (2 - Td or Tdap) 08/11/2029 08/11/2019 Cholesterol Screening (Lipid Panel) 01/24/2030 01/24/2025, 03/02/2019 Colorectal Cancer Screening: Colonoscopy 02/14/2035 02/14/2025 Colorectal Cancer Screening: Stool Based Tests (FOBT/FIT) Discontinued 12/12/2022 HIB Vaccines Aged Out No longer eligi ble based on patient's age to complete this topic HPV Vaccines Aged Out No longer eligi ble based on patient's age to complete this topic Hepatitis A Vaccines Aged Out No long er eligible based on patient's age to complete this topic IPV Vaccines Aged Out No longer eligi ble based on patient's age to complete this topic MMR Vaccines Aged Out No longer eligi ble based on patient's age to complete this topic Meningococcal ACWY Vaccine Aged Out N o longer eligible based on patient's age to complete this topic Meningococcal B Vaccine Aged Out No l onger eligible based on patient's age to complete this topic RSV Immunization Patients Under 20 months Aged Out No longer eligible based on patient's age to complete this topic Varicella Vaccines Aged Out No longer eligible based on patient's age to complete this topic Procedures Procedure Name Priority Date/Time Associated Diagnosis Comments COLONOSCOPY Routine 02/14/2025 9:10 AM EDT Rectal bleeding MG MAMMO DIGITAL SCREENING W MALI BILAT Routine 02/13/2025 10:47 AM EDT Encounter for screening mammogram for malignant neoplasm of breast from Last 3 Months or Most Recently Relevant to Health Maintenance Results * COLONOSCOPY Anesthesia - MAC; SP ENDOSCOPY (02/14/2025 9:10 AM EDT) Anatomical Region Laterality Modality Other 02/14/2025 8:52 AM EDT Impressions 02/14/2025 9:10 AM EDT - The entire examined colon is normal. - No specimens collected. Recommendation: - Repeat colonoscopy in 10 years for screening purposes. Narrative 02/14/2025 9:10 AM EDT [facility] Patient Name: Lizzeth Mcclain Procedure Date: 02/14/2025 8:52 AM Date of : 1975 Age: 49 Gender: Female Note Status: Finalized Attending MD: Michael Wilson MD, Procedure Date No Time: 02/14/2025 Procedure: Colonoscopy Indications: Screening for colorectal malignant neoplasm Providers: Michael Wilson MD Referring MD: Michael Wilson MD Medicines: Propofol per Anesthesia Complications: No immediate complications. Estimated Blood Loss: Estimated blood loss: none. Procedure: Pre-Anesthesia Assessment: - ASA Grade Assessment: II - A patient with mild systemic disease. After I obtained informed consent, the scope was passed under direct vision. Throughout the procedure, the patient's blood pressure, pulse, and oxygen saturations were monitored continuously.The Colonoscope was introduced through the anus and advanced to the cecum, identified by appendiceal orifice and ileocecal valve. The colonoscopy was performed without difficulty. The patient tolerated the procedure well. The quality of the bowel preparation was adequate. Findings: The perianal and digital rectal examinations were normal. The entire examined colon appeared normal. Procedure Code(s): --- Professional --- G0121, Colorectal cancer screening; colonoscopy on individual not meeting criteria for high risk Diagnosis Code(s): --- Professional --- Z12.11, Encounter for screening for malignant neoplasm of colon CPT copyright 2020 [employer]. All rights reserved. The codes documented in this report are preliminary and upon physician coder review may be revised to meet current compliance requirements. Michael Wilson MD 02/14/2025 9:10:16 AM This report has been signed electronically.Michael Wilson MD Number of Addenda: 0 Note Initiated On: 02/14/2025 8:52 AM Scope In: Scope Out: Endoscopy Department at [facility] - [address] [place] [id number] Procedure Note Michael Wilson MD - 02/14/2025 [facility] Patient Name: Lizzeth Mcclain Procedure Date: 02/14/2025 8:52 AM Date of : 1975 Age: 49 Gender: Female Note Status: Finalized Attending MD: Michael Wilson MD, Procedure Date No Time: 02/14/2025 Procedure: Colonoscopy Indications: Screening for colorectal malignant neoplasm Providers: Michael Wilson MD Referring MD: Michael Wilson MD Medicines: Propofol per Anesthesia Complications: No immediate complications. Estimated Blood Loss: Estimated blood loss: none. Procedure: Pre-Anesthesia Assessment: - ASA Grade Assessment: II - A patient with mild systemic disease. After I obtained informed consent, the scope was passed under direct vision. Throughout theprocedure, the patient's blood pressure, pulse, and oxygen saturations were monitored continuously.The Colonoscope was introduced through the anus and advanced to the cecum, identified by appendiceal orifice and ileocecal valve. The colonoscopy was performed without difficulty. The patient tolerated the procedure well. The quality of the bowel preparation was adequate. Findings: The perianal and digital rectal examinations were normal. The entire examined colon appeared normal. Procedure Code(s): --- Professional --- G0121, Colorectal cancer screening; colonoscopy on individual not meeting criteria for high risk Diagnosis Code(s): --- Professional --- Z12.11, Encounter for screening for malignantneoplasm of colon CPT copyright 2020 [employer]. All rights reserved. The codes documented in this report are preliminary and upon physician coder reviewmay be revised to meet current compliance requirements. Michael Wilson MD 02/14/2025 9:10:16 AM This report has been signed electronically.Michael Wilson MD Number of Addenda: 0 Note Initiated On: 02/14/2025 8:52 AM Scope In: Scope Out: Endoscopy Department at [facility] - [address] [place] [phone] IMPRESSION: - The entire examined colon is normal. - No specimens collected. Recommendation: - Repeat colonoscopy in 10 years for screening purposes. us Michael Wilson MD GI~PROCEDURE ORDERABLES Final Re sult * MG Mammo Digital Screening w Mali bilat (02/13/2025 10:47 AM EDT) Anatomical Region Laterality Modality Breast Bilateral Mammography 02/13/2025 1:56 PM EDT Impressions 02/13/2025 1:57 PM EDT No evidence of breast malignancy. BI-RADS CATEGORY: 1 - NEGATIVE RECOMMENDATION: Screening bilateral mammogram is recommended in 1 year. Mammo Location: [facility], [address] [place] [address], [id number], . -------- FINAL REPORT -------- Dictated By: Ramona Hairston Dictated Date: 02/13/2025 13:56 ET Assigned Physician: Ramona Hairston Reviewed and Electronically Signed By: Ramona Hairston Signed Date: 02/13/2025 13:57 ET Workstation ID: [id number] Transcribed By: Self Edit Transcribed Date: 02/13/2025 13:56 ET Narrative 02/13/2025 1:57 PM EDT CLINICAL: 49 years old, Female, routine annual exam. COMPARISON: 05/31/2017 and 07/12/2014 TECHNIQUE: Bilateral MLO and CC views were obtained digitally with 3-D mammogram (digital breast tomosynthesis). Computer-aided detection was utilized in evaluation of this exam (CAD). FINDINGS: There is no evidence of suspicious mass or architectural distortion. No worrisome calcifications are evident. There has been no significant change from prior exam(s). BREAST DENSITY: A - The breasts are almost entirely fatty. Procedure Note Ramona Hairston MD - 02/13/2025 CLINICAL: 49 years old, Female, routine annual exam. COMPARISON: 05/31/2017 and 07/12/2014 TECHNIQUE: Bilateral MLO and CC views were obtained digitally with 3-Dmammogram (digital breast tomosynthesis). Computer-aided detection wasutilized in evaluation of this exam (CAD). FINDINGS: There is no evidence of suspicious mass or architectural distortion. Noworrisome calcifications are evident. There has been no significantchange from prior exam(s). BREAST DENSITY: A - The breasts are almost entirely fatty. IMPRESSION: No evidence of breast malignancy. BI-RADS CATEGORY: 1 - NEGATIVE RECOMMENDATION: Screening bilateral mammogram is recommended in 1 year. Mammo Location: [facility], [address] [place] [address], [id number], . -------- FINAL REPORT -------- Dictated By: Ramona Hairston Dictated Date: 02/13/2025 13:56 ET Assigned Physician: Ramona Hairston Reviewed and Electronically Signed By: Ramona Hairston Signed Date: 02/13/2025 13:57 ET Workstation ID: [id number] Transcribed By: Self Edit Transcribed Date: 02/13/2025 13:56 ET Kevin Iyer MD IMG BI PROCEDURES Final Re sult from Last 3 Months or Most Recently Relevant to Health Maintenance Insurance [address] [id number] [facility] Member Subscriber Plan / Payer (Ef fective 2017-Present) Name:Lizzeth Mcclain Relation to Subscriber:Spouse Name:MARTIGATITO Date of :1975 Address: [address] [place] [address] Payer ID:[id number] Type:Not on file Address: [facility] [address] [place] [address] Care Teams Industrial Manufacturing Technician Relationship Specialty Start Date End Date Jeff Jimenez PA [address] [place] [address] PCP - General Physician Respiratory Care Instructor 01/25/25
== END 2025-10-18 20:34 | disposition home or self-care (01) ==
PROVIDERS: Physician Assistant; Emergency Provider Emergency Medicine; PCP Dentist General Practice
DX: N39.0 Urinary tract infection, site not specified (principal); R07.9 Chest pain, unspecified; R10.A2 Flank pain, left side; Z03.818 Encounter for observation for suspected exposure to other biological agents ruled out
CPT/HCPCS: 36415; 71046; 76775; 80053; 81001; 83880; 84484; 85025; 85610; 85730; 87086; 87637; 93005; 99284

== ENCOUNTER → 2025-10-18 14:17 | Outpatient (BNV) | payer BC, SELFPAY | PROVIDERS: Emergency Provider Emergency Medicine; PCP Dentist General Practice; Visit Provider Internal Medicine | DX: R00.1 Bradycardia, unspecified (principal) | CPT/HCPCS: 93010 ==

== ENCOUNTER → 2025-10-18 14:39 | Outpatient (BNV) | payer BC, SELFPAY | PROVIDERS: Visit Provider Radiology Diagnostic Radiology | DX: R10.A2 Flank pain, left side (principal); R07.9 Chest pain, unspecified | CPT/HCPCS: 71046; 76775 ==